=== PATIENT | female | born 1960 | race American Indian/Alaskan Native ===

== ENCOUNTER 2016-09-26 18:34 | Emergency (ER) | payer OTHER ==
[2016-09-26] MEDS ORDERED: TORADOL ONE (19:11)
[2016-09-26] MEDS ORDERED: TORADOL IM ONE (19:33)
--- NOTE | 2016-09-26 20:53 | XRay Report ---
FINAL REPORT PROCEDURE: XR HIP 2-3V RT TECHNIQUE: AP view of the pelvis and lateral view of the right hip were obtained HISTORY: fall, hip pain COMPARISON: No prior studies are available for comparison. FINDINGS: There is no widening of the symphysis pubis or SI joints. No hip fracture or dislocation is seen. Phleboliths are seen in the pelvis. There is likely a 3 cm calcified fibroid in the right side of the uterus. IMPRESSION: No fracture is seen.
--- NOTE | 2016-09-26 20:54 | XRay Report ---
FINAL REPORT PROCEDURE: XR SHOULDER 2 LT TECHNIQUE: Two views of the left shoulder are obtained. HISTORY: fall, shoulder pain COMPARISON: No prior studies are available for comparison. FINDINGS: Mild arthritic changes are seen in the AC joint and glenohumeral joint. No fracture or dislocation is seen. IMPRESSION: No fracture is seen.
--- NOTE | 2016-09-26 20:55 | XRay Report ---
FINAL REPORT PROCEDURE: XR KNEE 3V RT TECHNIQUE: Three views of the right knee are obtained. HISTORY: fall, knee pain COMPARISON: No prior studies are available for comparison. FINDINGS: Suprapatellar joint effusion is seen. Minimal osteoarthritic changes are seen in the medial compartment. No fracture or dislocation is seen. IMPRESSION: Joint effusion and minimal arthritic changes are seen.
--- NOTE | 2016-09-26 23:15 | Emergency Department Report ---
ED Fall HPI - General Chief Complaint: Fall Stated Complaint: R LEG PAIN/FALL Time Seen by Provider: 09/26/16 23:14 Source: patient Mode of arrival: Wheelchair - History of Present Illness Initial Comments: 56-year-old female presents emergency only complaining of right hip and right knee and left shoulder injury status post fall at the convenience store. Patient stated that floor was wet at the convenience store and slipped on a wet floor. He fell down to her right hip and right knee area also outstretched her left shoulder. Denies any head injury denies any neck injury. 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 right knee and left shoulder) Location - Extremities: Left: Shoulder, Thigh (right hip), Knee Severity: moderate Severity scale (0 -10): 3 Quality: dull, aching Context: tripped/slipped Associated Symptoms: denies - Related Data Home Medications Medication Instructions Recorded Confirmed Last Taken Atorvastatin (Nf) [Lipitor] 5 mg PO DAILY 10/07/14 10/07/14 10/07/14 Previous Rx's Medication Instructions Recorded Last Taken Type HYDROcodone/APAP 10-325 [[place] 1 each PO Q8HR PRN #20 tablet 10/07/14 Unknown Rx 10/325] Baclofen 20 mg PO BID #20 tablet 09/27/16 Unknown Rx Diclofenac Sodium 75 mg PO BID #20 tablet. 09/27/16 Unknown Rx traMADol [Ultram] 50 mg PO Q4HR PRN #14 tablet 09/27/16 Unknown Rx Allergies Allergy/AdvReac Type Severity Reaction Status Date / Time acetaminophen Allergy Shortness Verified 09/26/16 19:30 [From Theraflu Day-Night of Breath Cold &Cough] dextromethorphan HBr Allergy Shortness Verified 09/26/16 19:30 [From Theraflu Day-Night of Breath Cold &Cough] diphenhydramine Allergy Shortness Verified 09/26/16 19:30 [From Theraflu Day-Night of Breath Cold &Cough] phenylephrine HCl Allergy Shortness Verified 09/26/16 19:30 [From Theraflu Day-Night of Breath Cold &Cough] ED Review of Systems ROS: Stated complaint: R LEG PAIN/FALL Other details as noted in HPI Comment: All other systems reviewed and negative Constitutional: denies: chills, fever Eyes: denies: eye pain, eye discharge, vision change ENT: denies: ear pain, throat pain Respiratory: denies: cough, shortness of breath, wheezing Cardiovascular: denies: chest pain, palpitations Endocrine: no symptoms reported, see HPI Gastrointestinal: denies: abdominal pain, nausea, diarrhea Genitourinary: denies: urgency, dysuria, discharge Musculoskeletal: as per HPI, arthralgia. denies: back pain, joint swelling Skin: denies: rash, lesions Neurological: denies: headache, weakness, paresthesias Psychiatric: denies: anxiety, depression Hematological/Lymphatic: denies: easy bleeding, easy bruising ED Past Medical Hx - Past Medical History Previous Medical History?: No - Surgical History Past Surgical History?: Yes Additional Surgical History: tubal ligation. Carpel Tunnel - Social History Smoking Status: Never Smoker Substance Use Type: Alcohol - Medications Home Medications: Home Medications Medication Instructions Recorded Confirmed Last Taken Type Atorvastatin (Nf) [Lipitor] 5 mg PO DAILY 10/07/14 10/07/14 10/07/14 History HYDROcodone/APAP 10-325 [[place] 1 each PO Q8HR PRN #20 tablet 10/07/14 Unknown Rx 10/325] Baclofen 20 mg PO BID #20 tablet 09/27/16 Unknown Rx Diclofenac Sodium 75 mg PO BID #20 tablet. 09/27/16 Unknown Rx traMADol [Ultram] 50 mg PO Q4HR PRN #14 tablet 09/27/16 Unknown Rx ED Physical Exam - General Limitations: No Limitations General appearance: alert, in no apparent distress - Head Head exam: Present: atraumatic, normocephalic - Eye Eye exam: Present: normal appearance - ENT ENT exam: Present: mucous membranes moist - Neck Neck exam: Present: normal inspection - Respiratory Respiratory exam: Present: normal lung sounds bilaterally. Absent: respiratory distress - Cardiovascular Cardiovascular Exam: Present: regular rate, normal rhythm. Absent: systolic murmur, diastolic murmur, rubs, gallop - GI/Abdominal GI/Abdominal exam: Present: soft, normal bowel sounds - Extremities Exam Extremities exam: Present: normal inspection - Expanded Lower Extremity Exam Right Hip exam: Present: normal inspection, tenderness (right lateral hip) Upper Leg exam: Present: normal inspection, tenderness (lateral upper thigh) Knee exam: Present: normal inspection, tenderness (anterior patella). Absent: full ROM Lower Leg exam: Present: normal inspection, full ROM. Absent: tenderness, swelling Ankle exam: Present: normal inspection, full ROM. Absent: tenderness Foot/Toe exam: Present: normal inspection, full ROM. Absent: tenderness - Back Exam Back exam: Present: normal inspection - Neurological Exam Neurological exam: Present: alert, oriented X3 - Psychiatric Psychiatric exam: Present: normal affect, normal mood - Skin Skin exam: Present: warm, dry, intact, normal color. Absent: rash ED Course Vital Signs 09/26/16 19:11 Temperature 98.2 F Pulse Rate 78 Respiratory 18 Rate Blood Pressure 138/87 [Right] O2 Sat by Pulse 99 Oximetry - Reevaluation(s) Reevaluation #1: Patient feels better after receiving multiple pain medication emergency room. Still having some pain and discomfort but told her that she has no acute fractures as per radial radiologist report. The Follow-up with orthopedic doctor. 09/26/16 23:55 ED Medical Decision Making - Radiology Data Radiology results: report reviewed (no acute fracture) Critical Care Time: No Critical care attestation.: If time is entered above; I have spent that time in minutes in the direct care of this critically ill patient, excluding procedure time. ED Disposition Clinical Impression: Fall due to wet surface Qualifiers: Encounter type: initial encounter Qualified Code(s): W01.0XXA - Fall on same level from slipping, tripping and stumbling without subsequent striking against object, initial encounter Contusion of right hip, initial encounter Qualifiers: Encounter type: initial encounter Qualified Code(s): S70.01XA - Contusion of right hip, initial encounter Contusion of right knee, initial encounter Qualifiers: Encounter type: initial encounter Qualified Code(s): S80.01XA - Contusion of right knee, initial encounter Contusion of left shoulder, initial encounter Qualifiers: Encounter type: initial encounter Qualified Code(s): S40.012A - Contusion of left shoulder, initial encounter Disposition: DISCHARGED TO HOME OR SELFCARE Is pt being admited?: No Does the pt Need Aspirin: No Condition: Good Instructions: Contusion in Adults (ED), Fall Prevention (ED) Prescriptions: Baclofen 20 mg PO BID #20 tablet Diclofenac Sodium 75 mg PO BID #20 tablet. traMADol [Ultram] 50 mg PO Q4HR PRN #14 tablet PRN Reason: Pain Referrals: SALLIE MACIAS MD [Staff Physician] - 3-5 Days
[2016-09-26] MEDS ORDERED: ZOFRAN ODT PO ONE (23:25)
[2016-09-26] MEDS ORDERED: FLEXERIL PO ONE (23:25)
[2016-09-26] MEDS ORDERED: MORPHINE IM ONE (23:25)
[2016-09-26] MEDS ORDERED: MORPHINE ONE (23:44)
[2016-09-27 01:04] VITALS: BP 132/80
== END 2016-09-27 01:04 | disposition home or self-care (01) ==
LOC: ED 18:34
DX: S40.012A Contusion of left shoulder, initial encounter (principal); S70.01XA Contusion of right hip, initial encounter; S80.01XA Contusion of right knee, initial encounter; W01.0XXA Fall on same level from slipping, tripping and stumbling without subsequent striking against object, initial encounter; Y93.89 Activity, other specified; Y99.9 Unspecified external cause status; Y92.89 Other specified places as the place of occurrence of the external cause
CPT/HCPCS: 29505; 73030; 73502; 73562; 96372; 99284; J1885; J2270; Q0162